=== PATIENT | male | born 1990 | race African-American/Black ===

== ENCOUNTER 2016-10-08 15:07 | Emergency (ER) | payer OTHER ==
[2016-10-08 15:10] VITALS: BP 123/75; PULSE 94; TEMP 102.9; BMI 25.8
[2016-10-08] MEDS ORDERED: IBUPROFEN 600 MG TABLET (FP) PO ONE ×2 (15:34→15:36)
--- NOTE | 2016-10-08 15:47 | PDOC ---
History of Present Illness - General Chief Complaint: Respiratory Stated Complaint: FEVER Time Seen by Provider: 10/08/16 15:26 History Source: Patient Exam Limitations: No Limitations - History of Present Illness Initial Comments: 10/08/16 15:44 Patient with complaints of fever, sore throat, and myalgia since yesterday. Patient states took motrin this morning at 7 AM but when symptoms returned this afternoon, he decided come to the ER. Patient denies any recent illness, recent travel, recent sick contacts. Patient also denies cough, chest pain, abdominal pain, or nausea. 0 Timing/Duration: reports: yesterday Severity: reports: mild Associated Symptoms: reports: fever/chills, sore throat Past History - Past Medical History Allergies/Adverse Reactions: Allergies Allergy/AdvReac Type Severity Reaction Status Date / Time No Known Allergies Allergy Verified 10/08/16 15:10 Home Medications: Ambulatory Orders Oseltamivir Phosphate [Tamiflu -] 75 mg PO BID #10 capsule 10/08/16 Other medical history: denies - Psycho/Social/Smoking Cessation Hx Anxiety: No Suicidal Ideation: No Smoking Status: No Smoking History: Never smoked Number of Cigarettes Smoked Daily: 0 Information on smoking cessation initiated: No Hx Alcohol Use: Yes (occasional) Drug/Substance Use Hx: No Substance Use Type: None Patient Lives Alone: No Review of Systems - Review of Systems Constitutional: Yes: Fever HEENTM: Yes: Throat Pain Respiratory: No: Cough ABD/GI: No: Symptoms Reported Musculoskeletal: Yes: Joint Pain (generalized) Integumentary: No: Symptoms Reported Neurological: No: Symptoms reported Endocrine: No: Symptoms Reported *Physical Exam - Vital Signs Last Vital Signs Temp Pulse Resp BP Pulse Ox 102.9 F H 94 H 18 123/75 97 10/08/16 15:08 10/08/16 15:08 10/08/16 15:08 10/08/16 15:08 10/08/16 15:08 - Physical Exam General Appearance: Yes: Nourished, Appropriately Dressed. No: Apparent Distress HEENT: positive: EOMI, BREE, TMs Normal, Pharynx Normal, Nasal Congestion. negative: Pale Conjunctivae, Rhinorrhea, Sinus Tenderness Neck: positive: Supple Respiratory/Chest: positive: Lungs Clear, Normal Breath Sounds. negative: Respiratory Distress, Accessory Muscle Use Cardiovascular: positive: Regular Rhythm, Regular Rate. negative: Murmur Gastrointestinal/Abdominal: positive: Soft. negative: Tenderness Integumentary: positive: Normal Color, Warm, Moist Neurologic: positive: Motor Strength 5/5 (ambulatory) ED Treatment Course - Medications Given in the ED: ED Medications Discontinued Medications Generic Name Dose Route Start Last Admin Trade Name Juan Luisq PRN Reason Stop Dose Admin Ibuprofen 600 mg 10/08/16 15:36 10/08/16 15:40 Motrin - PO 10/08/16 15:37 600 mg ONCE ONE Administration Medical Decision Making - Medical Decision Making 10/08/16 15:46 Patient with fever, sore throat, arthralgia/myalgia. Patient arrives with fever of 102.9. Motrin ordered along with rapid strep and influenza swabbing.. 10/08/16 16:09 Patient is influenza B-positive. Patient will be revitalized and discharged home with supportive care and Tamiflu. *DC/Admit/Observation/Transfer Diagnosis at time of Disposition: Influenza B - Discharge Dispostion Disposition: HOME Condition at time of disposition: Good - Patient Instructions Printed Discharge Instructions: DI for Influenza -- Adult Additional Instructions: Please take medication as prescribed. Please take Motrin every 8 hours for discomfort and fever. rest. Drink plenty of fluids and rest.
== END 2016-10-08 16:16 | disposition home or self-care (01) ==
LOC: JERFT 15:07
DX: J10.1 Influenza due to other identified influenza virus with other respiratory manifestations (principal)
CPT/HCPCS: 87070; 87430; 87804; 99281-25

== ENCOUNTER 2016-10-08 17:07 | Emergency (ER) | payer OTHER ==
[2016-10-08 17:13] VITALS: BP 122/79; PULSE 93; TEMP 98.1; BMI 25.8
--- NOTE | 2016-10-08 17:39 | PDOC ---
History of Present Illness - General Chief Complaint: Pain Stated Complaint: HAD CHEST PAIN Time Seen by Provider: 10/08/16 17:13 History Source: Patient Exam Limitations: No Limitations - History of Present Illness Initial Comments: 10/08/16 17:35 26-year-old male presents to the ED with complaints of left upper quadrant left epigastric sharp pain that occurred while going to the pharmacy upon discharge here from the ER after being diagnosed with the flu. Patient states symptoms resolved while back in route to the ED but decided to be seen since he also was told that the pharmacy was closed upon his arrival there and wanted medication to be sent to [facility]. Patient has no complaints presently. Timing/Duration: resolved prior to arrival Severity: mild Associated Symptoms: reports: chest pain, other Past History - Past Medical History Allergies/Adverse Reactions: Allergies Allergy/AdvReac Type Severity Reaction Status Date / Time No Known Allergies Allergy Verified 10/08/16 17:13 Home Medications: Ambulatory Orders Oseltamivir Phosphate [Tamiflu -] 75 mg PO BID #10 capsule 10/08/16 Other medical history: DENIES - Psycho/Social/Smoking Cessation Hx Anxiety: No Suicidal Ideation: No Smoking Status: No Smoking History: Never smoked Number of Cigarettes Smoked Daily: 0 Information on smoking cessation initiated: No Hx Alcohol Use: No Drug/Substance Use Hx: No Substance Use Type: None Patient Lives Alone: No Lives with/in: parents Review of Systems - Review of Systems Able to Perform ROS?: Yes Constitutional: No: Symptoms Reported Cardiac (ROS): Yes: Chest Pain ABD/GI: Yes: Indigestion Integumentary: No: Symptoms Reported Neurological: No: Symptoms reported *Physical Exam - Vital Signs Last Vital Signs Temp Pulse Resp BP Pulse Ox 98.1 F 93 H 18 122/79 99 10/08/16 17:11 10/08/16 17:11 10/08/16 17:11 10/08/16 17:11 10/08/16 17:11 - Physical Exam General Appearance: Yes: Nourished, Appropriately Dressed. No: Apparent Distress Neck: positive: Supple Respiratory/Chest: positive: Lungs Clear, Normal Breath Sounds. negative: Chest Tender, Respiratory Distress, Accessory Muscle Use Cardiovascular: positive: Regular Rhythm, Regular Rate. negative: Murmur Gastrointestinal/Abdominal: positive: Soft. negative: Tenderness Integumentary: positive: Normal Color, Warm, Moist Neurologic: positive: Motor Strength 5/5 (ambulatory) Heart Score/ECG Review - ECG Intrepretation Rhythm: Regular Rhythm (rate 77 normal sinus) Medical Decision Making - Medical Decision Making 10/08/16 17:37 Patient just diagnosed influenza B. in route to the pharmacy to get his Tamiflu he developed left upper quadrant and left lower chest sharp pain that was concerning and while back in route to the ER symptoms have resolved but decided to come here in any case for evaluation. Patient with normal EKG and no reproducible pain. Patient also has normal temperature discharge home and [facility] *DC/Admit/Observation/Transfer Diagnosis at time of Disposition: Indigestion - Discharge Dispostion Disposition: HOME Condition at time of disposition: Good - Patient Instructions Printed Discharge Instructions: DI for Influenza -- Adult Additional Instructions: Please take Motrin or Tylenol with food as recommended. Prescription was resent to [facility]
--- NOTE | 2016-10-12 08:23 | EKG ---
Test Reason : Blood Pressure : / mmHG Vent. Rate : 077 BPM Atrial Rate : 077 BPM P-R Int : 138 ms QRS Dur : 076 ms QT Int : 354 ms P-R-T Axes : 053 079 022 degrees QTc Int : 400 ms NORMAL SINUS RHYTHM POSSIBLE LEFT ATRIAL ENLARGEMENT BORDERLINE ECG WHEN COMPARED WITH ECG OF 05-DEC-2010 18:10, NO SIGNIFICANT CHANGE WAS FOUND Confirmed by JORGE PIPER MD ([id number]) on 10/12/2016 8:23:05 AM Referred By: Confirmed By:JORGE PIPER MD
== END 2016-10-08 17:41 | disposition home or self-care (01) ==
LOC: JERFT 17:07
DX: J10.1 Influenza due to other identified influenza virus with other respiratory manifestations (principal)
CPT/HCPCS: 93005; 93010; 99281-25

== ENCOUNTER 2016-12-10 23:31 | Emergency (ER) | payer OTHER ==
[2016-12-11 00:26] VITALS: BP 143/80; PULSE 80; TEMP 97.9; BMI 25.8
--- NOTE | 2016-12-11 01:12 | PDOC ---
History of Present Illness - General Chief Complaint: Injury Stated Complaint: INJURY TO LT SIDE OF HIP Time Seen by Provider: 12/11/16 00:27 History Source: Patient Exam Limitations: No Limitations - History of Present Illness Initial Comments: 12/11/16 01:11 26-year-old male with no medical history presents to the emergency department complaining of left hip pain since this morning. Patient states while playing football, another player accidentally hit him on the left hip with a helmet. He denies extremity numbness or tingling sensation. Patient states the pain was severe immediately after the incident but has slowly subsided over the past 4 hours. Patient adamantly declines x-ray. Occurred: reports: this morning Pain Location: reports: other (left hip) Method of Injury: Yes: direct blow Past History - Past Medical History Allergies/Adverse Reactions: Allergies Allergy/AdvReac Type Severity Reaction Status Date / Time No Known Allergies Allergy Verified 12/11/16 00:25 Home Medications: Ambulatory Orders NK [No Known Home Medication] 12/11/16 - Psycho/Social/Smoking Cessation Hx Anxiety: No Suicidal Ideation: No Smoking Status: No Smoking History: Never smoked Number of Cigarettes Smoked Daily: 0 Hx Alcohol Use: No Drug/Substance Use Hx: No Substance Use Type: None Review of Systems - Review of Systems Able to Perform ROS?: Yes Comments:: 12/11/16 01:11 CONSTITUTIONAL: Absent: fever, chills, diaphoresis, generalized weakness, malaise, loss of appetite HEENT: Absent: rhinorrhea, nasal congestion, throat pain, throat swelling, difficulty swallowing, mouth swelling, ear pain, eye pain, visual Changes CARDIOVASCULAR: Absent: chest pain, loss of consciousness, palpitations, irregular heart rate, peripheral edema RESPIRATORY: Absent: cough, shortness of breath, dyspnea with exertion, orthopnea, wheezing, stridor, hemoptysis GASTROINTESTINAL: Absent: abdominal pain, abdominal distension, nausea, vomiting, diarrhea, constipation, melena, hematochezia GENITOURINARY: Absent: dysuria, frequency, urgency, hesitancy, hematuria, flank pain, genital pain MUSCULOSKELETAL: left hip pain Absent: myalgia, arthralgia, joint swelling SKIN: Absent: rash, itching, pallor HEMATOLOGIC/IMMUNOLOGIC: Absent: easy bleeding, easy bruising, lymphadenopathy, frequent infections ENDOCRINE: Absent: unexplained weight gain, unexplained weight loss, heat intolerance, cold intolerance NEUROLOGIC: Absent: headache, focal weakness or paresthesias, dizziness, unsteady gait, seizure, mental status changes, bladder or bowel incontinence PSYCHIATRIC: Absent: anxiety, depression, suicidal or homicidal ideation, hallucinations. Is the patient limited Wol[place] proficient: No *Physical Exam - Vital Signs Last Vital Signs Temp Pulse Resp BP Pulse Ox 97.9 F 80 16 143/80 100 12/11/16 00:25 12/11/16 00:25 12/11/16 00:25 12/11/16 00:25 12/11/16 00:25 - Physical Exam Comments: 12/11/16 01:11 GENERAL: Well developed, well nourished. Awake and alert. No acute distress. HEENT: Normocephalic, atraumatic. PERRLA, EOMI. No conjunctival pallor. Sclera are non- icteric. Moist mucous membranes. Oropharynx is clear. NECK: Supple. Full ROM. No JVD. Carotid pulses 2+ and symmetric, without bruits. No thyromegaly. No lymphadenopathy. CARDIOVASCULAR: Regular rate and rhythm. No murmurs, rubs, or gallops. Distal pulses are 2+ and symmetric. PULMONARY: No evidence of respiratory distress. Lungs clear to auscultation bilaterally. No wheezing, rales or rhonchi. ABDOMINAL: Soft. Non-tender. Non-distended. No rebound or guarding. No organomegaly. Normoactive bowel sounds. MUSCULOSKELETAL Normal range of motion at all joints. No bony deformities or tenderness. No CVA tenderness. EXTREMITIES: +Pain to left hip on palp left hip; F.R.O.M. slight swelling neg redness No cyanosis. No clubbing. No edema. No calf tenderness. SKIN: Warm and dry. Normal capillary refill. No rashes. No jaundice. NEUROLOGICAL: Alert, awake, appropriate. Cranial nerves 2-12 intact. No deficits to light touch and temperature in face, upper extremities and lower extremities. No motor deficits in the in face, upper extremities and lower extremities. Normoreflexic in the upper and lower extremities. Normal speech. Toes are down- going bilaterally. Gait is normal without ataxia. PSYCHIATRIC: Cooperative. Good eye contact. Appropriate mood and affect. *DC/Admit/Observation/Transfer Diagnosis at time of Disposition: Contusion, hip Qualifiers: Encounter type: initial encounter Laterality: left Qualified Code(s): S70.02XA - Contusion of left hip, initial encounter - Discharge Dispostion Disposition: HOME Condition at time of disposition: Stable Admit: No - Referrals Referrals: Sheron Quiroz MD [Primary Care Provider] - Alexander Aguila MD [Staff Physician] - - Patient Instructions Printed Discharge Instructions: DI for Contusion Additional Instructions: Tylenol/motrin as needed for pain Ice return to the ER for severe/persistent/worsening symptoms - Post Discharge Activity Work/School Note: Back to Work
== END 2016-12-11 01:27 | disposition home or self-care (01) ==
LOC: JER 23:31
DX: S70.02XA Contusion of left hip, initial encounter (principal); W21.81XA Striking against or struck by football helmet, initial encounter; Y93.61 Activity, american tackle football; Y92.321 Football field as the place of occurrence of the external cause; Y99.8 Other external cause status
CPT/HCPCS: 99281-25

== ENCOUNTER 2017-01-15 18:44 | Emergency (ER) | payer OTHER ==
[2017-01-15 18:49] VITALS: BP 147/86; PULSE 62; TEMP 98.2; BMI 26.6
--- NOTE | 2017-01-15 19:19 | PDOC ---
History of Present Illness - General Chief Complaint: Pain Stated Complaint: Shoulder PAIN Time Seen by Provider: 01/15/17 19:00 History Source: Patient Exam Limitations: No Limitations - History of Present Illness Initial Comments: 01/15/17 19:20 Chief complaint: Right shoulder pain with swelling 8 days ago History of present illness: Patient is a 26-year-old male with no significant medical history here today complaining of ongoing pain to his right shoulder area 8 days after being tackled and hitting the ground hard on his right shoulder. Patient has some swelling noted to his left shoulder area slightly medial to the before meals joint. Patient reports having pain with certain positions of his right shoulder when trying to throw something or lift anything. Patient denies any numbness of his right arm or hand. Patient denies any other injuries. 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 Occurred: reports: other (01/07/17 ) Severity: reports: moderate (rt. shoulder ) Pain Location: reports: upper extremity (rt. shoulder ) Method of Injury: Yes: direct blow (to the ground playing football ) Modifying Factors: improves with: immobilization Loss of Consciousness: no loss of consciousness Associated Symptoms (Fall): denies symptoms Past History - Past Medical History Allergies/Adverse Reactions: Allergies Allergy/AdvReac Type Severity Reaction Status Date / Time No Known Allergies Allergy Verified 01/15/17 18:48 Home Medications: Ambulatory Orders NK [No Known Home Medication] 12/11/16 Other medical history: NONE - Psycho/Social/Smoking Cessation Hx Anxiety: No Suicidal Ideation: No Smoking Status: No Smoking History: Never smoked Number of Cigarettes Smoked Daily: 0 Hx Alcohol Use: No Drug/Substance Use Hx: No Substance Use Type: None Review of Systems - Review of Systems Able to Perform ROS?: Yes Constitutional: No: Symptoms Reported HEENTM: No: Symptoms Reported Respiratory: No: Symptoms reported Cardiac (ROS): No: Symptoms Reported ABD/GI: No: Symptoms Reported : No: Symptoms Reported Musculoskeletal: Yes: Joint Pain (right shoulder ), Joint Swelling (rt. shoulder slightly medial to AC jt) Integumentary: No: Symptoms Reported Neurological: No: Symptoms reported *Physical Exam - Vital Signs Last Vital Signs Temp Pulse Resp BP Pulse Ox 98.2 F 62 20 147/86 99 01/15/17 18:46 01/15/17 18:46 01/15/17 18:46 01/15/17 18:46 01/15/17 18:46 - Physical Exam General Appearance: Yes: Appropriately Dressed Neck: negative: Tender, Lymphadenopathy (R), Lymphadenopathy (L), Rigidity, Tender lateral, Tender midline Comments:: 01/15/17 19:17 rt. radial pulse 4 + Extremity: positive: Normal Capillary Refill, Normal Range of Motion (right shoulder ), Tender (rt. shoulder slightly medial to AC JT ), Swelling (rt. shoulder area slight medial to AC jt) Integumentary: positive: Normal Color Neurologic: positive: Alert, Normal Response, Motor Strength 5/5 (rt. upper arm motor strength 5/4), Respond to painful stimul (right shoulder/arm ), Responsive. negative: Numbness, Sensory Deficit (rt. arm, shoulder ) Medical Decision Making - Medical Decision Making 01/15/17 19:22 Patient is a 26-year-old male with no significant medical history here today complaining of ongoing pain to his right shoulder area 8 days after being tackled and hitting the ground hard on his right shoulder. Patient has some swelling noted to his left shoulder area slightly medial to the before meals joint. Patient reports having pain with certain positions of his right shoulder when trying to throw something or lift anything. Patient denies any numbness of his right arm or hand. Patient denies any other injuries. 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 Right shoulder r/o fracture rt. shoulder pain with swelling medial to AC jt AC separation slight rt. PLAN: pt. does not want pain medication has pain only with certain movements xray rt. shoulder slight AC jt separation noted pt. does not want sling Follow up with Dr. Sheriff on 01/16/[address] Graham here on 01/17/17 01/15/17 19:47 *DC/Admit/Observation/Transfer Diagnosis at time of Disposition: Right shoulder injury Qualifiers: Encounter type: initial encounter Qualified Code(s): S49.91XA - Unspecified injury of right shoulder and upper arm, initial encounter - Discharge Dispostion Disposition: HOME Condition at time of disposition: Stable - Referrals Referrals: Sheron Quiroz MD [Primary Care Provider] - Kirill Sheriff MD [Staff Physician] - Robbie Graham MD [Staff Physician] - - Patient Instructions Additional Instructions: Follow-up with orthopedist as soon as possible for further evaluation Avoid doing any lifting or exercise or trying to throw anything using your right arm May take ibuprofen as needed as directed by donkey engine firer/fireman for pain Patient voiced understanding of discharge instructions and all questions were answered - Post Discharge Activity Work/School Note: Back to Work
== END 2017-01-15 20:05 | disposition home or self-care (01) ==
LOC: JERFT 18:44
DX: S43.101A Unspecified dislocation of right acromioclavicular joint, initial encounter (principal); S49.81XA Other specified injuries of right shoulder and upper arm, initial encounter; W03.XXXA Other fall on same level due to collision with another person, initial encounter; Y93.61 Activity, american tackle football; Y92.321 Football field as the place of occurrence of the external cause; Y99.8 Other external cause status
CPT/HCPCS: 73000-TC-RT; 73030-TC-RT; 99281-25

== ENCOUNTER 2017-02-18 19:38 | Emergency (ER) | payer OTHER ==
[2017-02-18 19:55] VITALS: BP 158/94; PULSE 84; TEMP 102.3; BMI 26.6
--- NOTE | 2017-02-18 20:42 | PDOC ---
*Physical Exam - Vital Signs Last Vital Signs Temp Pulse Resp BP Pulse Ox 102.3 F H 84 18 158/94 98 02/18/17 19:45 02/18/17 19:45 02/18/17 19:45 02/18/17 19:45 02/18/17 19:45 Medical Decision Making - Medical Decision Making 02/18/17 20:42 26 yo M presenting to the ER with dental pain Pt has temp No other signs of illness Multiple dental caries, poor dentition Pt seen by Midlevel Provider under my direct supervision I agree with plan as outlined by Midlevel Provider *DC/Admit/Observation/Transfer Diagnosis at time of Disposition: Tooth decay - Discharge Dispostion Disposition: HOME Condition at time of disposition: Stable - Prescriptions Prescriptions: Penicillin V Potassium [Pen Vee K -] 500 mg PO TID #21 tablet - Referrals Referrals: Sheron Quiroz MD [Primary Care Provider] - - Patient Instructions Printed Discharge Instructions: DI for Tooth Decay Additional Instructions: Follow up with the dentist gregory. Address: [address] [place] [address] Return for the severe/persistent/worsening symptoms
--- NOTE | 2017-02-18 20:51 | PDOC ---
History of Present Illness - General Chief Complaint: Toothache Stated Complaint: INFECTION Time Seen by Provider: 02/18/17 20:00 History Source: Patient Exam Limitations: No Limitations - History of Present Illness Initial Comments: 02/18/17 20:49 26-year-old male with no medical history presents to the emergency department complaining of right lower second molar toothache 2 days. Patient states he is able to eat and drink without any difficulties. The pain is exacerbated with cold fluids. Patient started having a fever 3 hours ago but denies nausea/ vomiting, sore throat, facial swelling. Patient has a dental appointment in 2 days.x2d. Timing/Duration: other (x2d) Past History - Past Medical History Allergies/Adverse Reactions: Allergies Allergy/AdvReac Type Severity Reaction Status Date / Time No Known Allergies Allergy Verified 02/18/17 19:49 Home Medications: Ambulatory Orders Penicillin V Potassium [Pen Vee K -] 500 mg PO TID #21 tablet 02/18/17 Other medical history: denies - Immunization History Immunization Up to Date: Yes - Psycho/Social/Smoking Cessation Hx Anxiety: No Suicidal Ideation: No Smoking Status: No Smoking History: Never smoked Number of Cigarettes Smoked Daily: 0 Hx Alcohol Use: No Drug/Substance Use Hx: No Substance Use Type: None Review of Systems - Review of Systems Able to Perform ROS?: Yes Comments:: 02/18/17 21:45 CONSTITUTIONAL: Absent: fever, chills, diaphoresis, generalized weakness, malaise, loss of appetite HEENT: Right lower molar toothache Absent: rhinorrhea, nasal congestion, throat pain, throat swelling, difficulty swallowing, mouth swelling, ear pain, eye pain, visual Changes CARDIOVASCULAR: Absent: chest pain, loss of consciousness, palpitations, irregular heart rate, peripheral edema RESPIRATORY: Absent: cough, shortness of breath, dyspnea with exertion, orthopnea, wheezing, stridor, hemoptysis GASTROINTESTINAL: Absent: abdominal pain, abdominal distension, nausea, vomiting, diarrhea, constipation, melena, hematochezia SKIN: Absent: rash, itching, pallor HEMATOLOGIC/IMMUNOLOGIC: Absent: easy bleeding, easy bruising, lymphadenopathy, frequent infections Is the patient limited [place] proficient: No *Physical Exam - Vital Signs Last Vital Signs Temp Pulse Resp BP Pulse Ox 102.3 F H 84 18 158/94 98 02/18/17 19:45 02/18/17 19:45 02/18/17 19:45 02/18/17 19:45 02/18/17 19:45 - Physical Exam Comments: 02/18/17 21:45 GENERAL: Well developed, well nourished. Awake and alert. No acute distress. HEENT: Right 2nd lower molar tooth decay/ pain on percussion no abscess/no facial swelling/ neg facial pain Normocephalic, atraumatic. PERRLA, EOMI. No conjunctival pallor. Sclera are non- icteric. Moist mucous membranes. Oropharynx is clear. NECK: Supple. Full ROM. No JVD. Carotid pulses 2+ and symmetric, without bruits. No thyromegaly. No lymphadenopathy. CARDIOVASCULAR: Regular rate and rhythm. No murmurs, rubs, or gallops. Distal pulses are 2+ and symmetric. PULMONARY: No evidence of respiratory distress. Lungs clear to auscultation bilaterally. No wheezing, rales or rhonchi. SKIN: Warm and dry. Normal capillary refill. No rashes. No jaundice. *DC/Admit/Observation/Transfer Diagnosis at time of Disposition: Tooth decay - Discharge Dispostion Disposition: HOME Condition at time of disposition: Stable Admit: No - Prescriptions Prescriptions: Penicillin V Potassium [Pen Vee K -] 500 mg PO TID #21 tablet - Referrals Referrals: Sheron Quiroz MD [Primary Care Provider] - - Patient Instructions Printed Discharge Instructions: DI for Tooth Decay Additional Instructions: Follow up with the dentist gregory. Address: [address] [place] [address] Return for the severe/persistent/worsening symptoms
[2017-02-18] MEDS ORDERED: AMOXICILLIN 500 MG CAPSULE (FP) PO ONE (21:42)
[2017-02-18] MEDS ORDERED: IBUPROFEN 400 MG TABLET (FP) PO ONE ×2 (21:43→21:51)
[2017-02-18] MEDS ORDERED: AMOXICILLIN 500 MG CAPSULE (FP) ONE (21:51)
== END 2017-02-18 22:10 | disposition home or self-care (01) ==
LOC: JER 19:38
DX: K02.9 Dental caries, unspecified (principal)
CPT/HCPCS: 99282-25